=== PATIENT | female | born 1980 | race Caucasian/White ===

== ENCOUNTER 2017-10-18 09:37 | Emergency (ER) | payer OTHER ==
[2017-10-18 11:24] VITALS: BP 122/76
== END 2017-10-18 11:24 | disposition home or self-care (01) ==
LOC: ED 09:37
DX: L03.012 Cellulitis of left finger (principal); I10 Essential (primary) hypertension; E11.9 Type 2 diabetes mellitus without complications; F31.9 Bipolar disorder, unspecified; E78.00 Pure hypercholesterolemia, unspecified
CPT/HCPCS: J2001

== ENCOUNTER 2018-01-27 08:57 | Emergency (ER) | payer OTHER ==
[~2018-01-27] VITALS: Ht 162.6 cm; Wt 86.2 kg
[2018-01-27 09:11] VITALS: Ht 162.6 cm; Wt 86.2 kg
[2018-01-27 11:18] VITALS: BP 150/90
== END 2018-01-27 11:18 | disposition home or self-care (01) ==
LOC: ED 08:57
DX: H26.9 Unspecified cataract (principal); A53.9 Syphilis, unspecified; I10 Essential (primary) hypertension; E11.9 Type 2 diabetes mellitus without complications; E78.00 Pure hypercholesterolemia, unspecified; F31.9 Bipolar disorder, unspecified
CPT/HCPCS: J0780; J1885; J2540